=== PATIENT | female | born 1980 | race African-American/Black ===

== ENCOUNTER 2024-02-06 15:32 | Emergency (ER) | payer BC, SELFPAY ==
--- NOTE | ~2024-02-06 | XR_ITS ---
EXAMINATION: XR chest 2V 02/06/2024 16:28 INDICATION: Seizures PROCEDURE: 2 view chest COMPARISON: No prior studies for comparison. FINDINGS: The lungs are clear. The cardiomediastinal silhouette is within normal limits. There are no pleural effusions. There is no pneumothorax suspected. IMPRESSION: 1: NO ACUTE CARDIOPULMONARY DISEASE. Reviewed, dictated and finalized at location B.
--- NOTE | ~2024-02-06 | CT_ITS ---
EXAMINATION: CT cervical spine wo con DATE: 02/06/2024 16:25 INDICATION: Head and neck pain post seizure with head injury TECHNIQUE: Computed tomography (CT) of the cervical spine was performed without intravenous contrast. Automated exposure control and iterative reconstruction technique were employed. The dose-length pro duct was 224.93 mGy-cm. COMPARISON: None FINDINGS: Mild cervical dextrocurvature. Sagittal alignment is normal. Vertebral body heights are normal. No fr acture. Mild disc height loss at C2-C3 through C4-C5 and minimally at C5-C6. Disc bulges at C3-C4 thr ough C5-C6 resulting in mild central canal stenosis. Multilevel mild cervical facet osteoarthritis an d mild to moderate uncovertebral osteoarthritis which contributes to mild neural foraminal stenosis b ilaterally at C3-C4 and C4-C5. Cervical soft tissues are unremarkable. Visualized apices of lungs are clear. IMPRESSION: 1. Mild cervical spondylosis. No acute osseous abnormality. Reviewed, dictated and finalized at location A.
--- NOTE | ~2024-02-06 | CT_ITS ---
CT brain wo con Ordering provider: Tosha Hoffman MD History: 43 years Female with . trauma . Comparison: None. Technique: CT of the head without contrast. Radiation reduction technique utilized. DLP is 605.33 mGy . FINDINGS: BRAIN PARENCHYMA AND CSF SPACES: No midline shift, mass effect or hemorrhage. The brain parenchyma a nd CSF spaces are otherwise normal. VISUALIZED PARANASAL SINUSES: Well aerated. MASTOIDS: Well aerated. BONES: The bones appear intact. SOFT TISSUES: Visualized nasopharynx is normal. Superficial soft tissues are normal. IMPRESSION: No acute intracranial findings. Reviewed, dictated and finalized at location A.
[2024-02-06 15:25] VITALS: BP 128/91; PULSE 96; RESP 23; TEMP 36.8; O2SAT 100
--- NOTE | 2024-02-06 15:35 | ECG_ITS ---
Test Date: 2024-02-06 15:38:23 Measurements Intervals [place] Rate: 96 P: 0 NV: 0 QRS: 38 QRSD: 90 T: 72 QT: 343 QTc: 434 Interpretive Statements NORMAL SINUS RHYTHM NORMAL ECG No previous ECG available for comparison Electronically Signed On 02-07-2024 15:05:54 CDT by Michele Ayala M.D.
--- NOTE | 2024-02-06 16:03 | ED.SEIZURE ---
HPI - Seizure General Chief Complaint: Seizure Stated Complaint: seizure Time Seen by Provider: 02/06/24 15:37 History of Present Illness HPI Narrative: Patient is a 43-year-old female with history of stress-induced seizures here after a seizure-like episode. Patient was at a February 02 celebration where she was both performing and having a a stand, she notes that she was feeling very overheated. Her family witnessed her not feeling well and begin collapsing to the ground. They do believe she hit her head on the concrete. She did lose consciousness. Family witnessed some seizure-like activity that lasted less than 5 minutes. Patient currently complaining of a headache as well as some memory loss. She notes her last seizure was in 2021, it was thought to be stress induced at that time and she has never been on any antiepileptics. She denies any chest pain or cardiac history. Related Data Allergies Allergy/AdvReac Type Severity Reaction Status Date / Time No Known Allergies Allergy Mild Unverified 02/08/10 20:23 Review of Systems Review of Systems: All systems reviewed & are unremarkable except as noted in HPI and below PMFSH Family History Family History (Updated 03/17/16 @ 23:21 by DOCTOR UNKNOWN) Mother Depression Family history of migraine headaches Patient's mother is in good health Father Family history of migraine headaches Patient's father is in good health Grandparent Hypertension Family history of malignant neoplasm of breast Other Family history of blood dyscrasia Social History Social History Smoking status: Never smoker Alcohol intake: current Exam Narrative: GENERAL: Well-appearing, well-nourished, and in no acute distress. HEAD: Normocephalic, atraumatic. EYES: PERRLA and EOMI. ENT: Nares clear. Mucous membranes moist. NECK: Supple. CHEST: Clear to auscultation. No respiratory distress. HEART: Regular rate and rhythm. Normal peripheral pulses. ABDOMEN: Soft, nontender, nondistended. EXTREMITIES: Normal range of motion. No edema. SKIN: Warm, dry, no rash. NEURO: No focal deficits. Alert and oriented x3. PSYCH: Normal mood and affect. Course Course Emergency Course: Chart review performed. Patient here with witnessed seizure x5 minutes. Reportedly fell and hit his head on concrete. No prior visits in our system. Patient seen evaluated, alert, oriented, no focal neurologic deficits, does not appear to be postictal. Will do basic labs, CT brain, cervical spine, chest x-ray. IV fluids and Zofran ordered. Patient agreeable to workup and plan. Family at bedside helps provide history and are also agreeable to workup and plan. Lab work and imaging reviewed, CBC unremarkable, electrolytes within normal limits, normal renal function, troponin negative. Normal LFTs. UA negative for UTI. CT head negative. CT cervical spine shows no acute abnormalities. Chest x-ray negative. Patient re-evaluated, feeling well, continues to have a headache. Advised that she may be at risk for a concussion after hitting her head. She should monitor her symptoms and they should improve within the next 7-10 days. Advised aggressive oral fluids. No seizure like activity seen here in the ER. Patient [facility]. The results of pertinent diagnostic studies and exam findings were discussed. The patient?s provisional diagnosis and plan of care were discussed with the patient and present family. The patient and/or present family expressed understanding of the diagnosis and plan. The nurse was instructed to provide written instructions and appropriate follow-up information. The patient understands their need and responsibility to obtain additional follow-up as instructed. The risks of medications administered and prescribed were discussed with the patient and family present. Vital Signs Vital signs: Vital Signs Temperature 98.2 F 06/1
[2024-02-06 16:30] VITALS: BP 111/86; PULSE 92; RESP 14; O2SAT 100
[2024-02-06] MEDS: LACTATED RINGERS 1,000 ML 999 ML IV CONT (16:30)
[2024-02-06] MEDS: ONDANSETRON INJ 4 MG/2 ML VIAL IV PUSH (16:34)
[2024-02-06 17:08] LABS: Basophils Percent Auto 0.5 % (0.2-1.2); Eosinophils Percent Auto 0.1 % (0-4.4); Hematocrit 34.5 % (37.0-47.0); Immature Granulocyte Absolute 0.01 K/mm3 (0.00-0.031); Immature Granulocyte Percent A 0.1 % (0-0.5); Lymphocytes Absolute Auto 1.28 K/mm3 (0.9-3.2); Lymphocytes Percent Auto 17.6 % (18.3-44.2); Mean Corpuscular HGB Conc 34.8 g/dl (32-36); Mean Corpuscular Hemoglobin 31.5 pg (26-34); Mean Corpuscular Volume 90.6 fl (80-100); Mean Platelet Volume 10.4 fl (7.4-10.4); Monocytes Absolute Auto 0.4 K/mm3 (0.1-0.6); Neutrophils Absolute Auto 5.5 K/mm3 (1.3-6.7); Neutrophils Percent Auto 75.7 % (45.5-73.1); Platelet Count Result 281 k/mm3 (150-375); Red Blood Count 3.81 M/mm3 (4.2-5.4); Red Cell Distribution Width 13.2 % (11.5-14.5); White Blood Count 7.3 K/mm3 (4.5-10.0)
[2024-02-06 17:10] LABS: Appearance Urine Clear (Clear); Bilirubin Urine Negative (Negative); Blood Urine Negative (Negative); Color Urine Yellow (Yellow); Glucose Urine UA Negative (Negative); Ketones Urine Negative (Negative); Leukocyte Esterase Ur Negative LEU/UL (Negative); Nitrate Urine Negative (Negative); Protein Urine Negative (Negative); Urobilinogen Urine 0.2 mg/dL (<2.0); pH Urine 6.5 (5.0-9.0)
[2024-02-06 17:11] LABS: Add Urine Microscopic? NO; Specific Grav Ur 1.003 (1.001-1.035)
[2024-02-06 17:18] LABS: Alanine Aminotransferase 14 U/L (6-35); Albumin Level 4.6 g/dL (3.5-5.1); Alkaline Phosphatase 58 U/L (38-126); Anion Gap 4 mmol/L (4-12); Aspartate Amino Transferase 28 U/L (14-36); Bilirubin,Total 0.5 mg/dL (0.2-1.3); Blood Urea Nitrogen 8 mg/dL (7-17); Calcium 9.2 mg/dL (8.4-10.2); Carbon Dioxide 29 mmol/L (22-30); Chloride 105 mmol/L (98-107); Estimated CRCL calculation 87 ml/min; Estimated Glomerular Filt Rate > 60; Glucose 87 mg/dL (65-110); Magnesium 1.8 mg/dL (1.6-2.3); Sodium 138 mmol/L (137-145)
[2024-02-06 17:28] LABS: Troponin I < 0.012 ng/mL (0.000-0.034)
[2024-02-06] MEDS: KETOROLAC 15 MG/ML VIAL (*BKC) IV PUSH (18:05)
== END 2024-02-06 19:07 | disposition home or self-care (01) ==
PROVIDERS: Emergency Provider Student in an Organized Health Care Education/Training Program
DX: R56.9 Unspecified convulsions (principal); R55 Syncope and collapse; S06.0X9A Concussion with loss of consciousness of unspecified duration, initial encounter; M47.812 Spondylosis without myelopathy or radiculopathy, cervical region; W18.39XA Other fall on same level, initial encounter
CPT/HCPCS: 36415; 70450; 71046; 72125; 80053; 81003; 81025; 83735; 84484; 85025; 93005; 96361; 96374; 96375; 99284; J1885; J2405; J7120; L0140